=== PATIENT | female | born 1935 | race Caucasian/White ===

== ENCOUNTER 2024-04-07 06:15 | Outpatient (CLI) | payer MEDICARE | END 2024-04-07 23:59 | disposition home or self-care (01) | LOC: MRI02 06:15 | PROVIDERS: ATTEND Physical Medicine & Rehabilitation | DX: M50.023 Cervical disc disorder at C6-C7 level with myelopathy (principal); M47.12 Other spondylosis with myelopathy, cervical region; M79.10 Myalgia, unspecified site; M48.02 Spinal stenosis, cervical region; N28.1 Cyst of kidney, acquired | CPT/HCPCS: 72141 ==

== ENCOUNTER 2025-01-31 08:35 | Outpatient (CLI) | payer MEDICARE ==
[2025-01-29 15:48] LABS: CREATININE 0.84 MG/DL (0.40-0.90); TOTAL CARBON DIOXIDE 28.2 MMOL/L (24-32); eGFR 64 ML/MIN
[2025-01-31] MEDS ORDERED: GADOTERATE MEGLUMINE 7.5 MMOL/15 ML VIAL IV ONE (11:49)
--- NOTE | 2025-01-31 17:03 | RADIOLOGY REPORT ---
PROCEDURE: MR MRI HEAD INDICATION: DIZZINESS AND GIDDINESS;MULTIPLE SCLEROSIS EXAM DATE: 01/31/2025 09:01 AM COMPARISON: None TECHNIQUE: MRI of the brain with and without 15 cc clariscan intravenous contrast. FINDINGS: Limited by motion. Diffusion weighted images of the brain demonstrate no evidence of acute infarction. There is no evidence of acute intracranial hemorrhage, extra-axial collection, mass effect, midline s hift, herniation or hydrocephalus. [id number] cerebral atrophy. Moderate periventricular and deep white matter signal abnormality. No associated abnormal enhancement . There are no signal abnormalities on the susceptibility weighted sequences. The major vascular flow voids are present. The visualized paranasal sinuses and mastoid air cells are clear. The surrounding soft tissues and o sseous structures are unremarkable. IMPRESSION: 1. No evidence of acute infarction, intracranial hemorrhage, mass effect or hydrocephalus. Mild-to-mo derate cerebral atrophy. Moderate periventricular and deep white matter signal abnormality which cou ld be due to chronic microvascular ischemic disease and/or demyelinating disease. No abnormal enhance ment. Clinical correlation and continued follow-up is recommended. HS:Y
== END 2025-01-31 23:59 | disposition home or self-care (01) ==
LOC: MRI 08:35
PROVIDERS: ATTEND Family Medicine
DX: G31.9 Degenerative disease of nervous system, unspecified (principal); R42 Dizziness and giddiness; G35 Multiple sclerosis; Z79.899 Other long term (current) drug therapy
CPT/HCPCS: 36415; 70553; 80048; A9575